=== PATIENT | female | born 1965 | race Caucasian/White ===

== ENCOUNTER 2021-09-12 09:52 | Emergency (ER) | payer OTHER | END 2021-09-12 12:06 | disposition home or self-care (01) | LOC: ER1 09:52 | DX: S93.402A Sprain of unspecified ligament of left ankle, initial encounter (principal); S93.602A Unspecified sprain of left foot, initial encounter; E11.9 Type 2 diabetes mellitus without complications; I10 Essential (primary) hypertension; E78.5 Hyperlipidemia, unspecified; Z79.84 Long term (current) use of oral hypoglycemic drugs; X50.9XXA Other and unspecified overexertion or strenuous movements or postures, initial encounter | CPT/HCPCS: 73610; 73630; 99283 ==

== ENCOUNTER 2021-10-17 21:03 | Emergency (ER) | payer OTHER ==
[2021-10-18 00:09] LABS: HEMOGLOBIN 12.7 gm/dl (12.3-15.3); RED BLOOD COUNT 4.21 M/UL (4.00-5.10); WHITE BLOOD COUNT 6.4 K/UL (4.5-11.0)
[2021-10-18 00:28] LABS: BUN/CREATININE RATIO 23 (0-10)
[2021-10-18] MEDS ORDERED: HYDROCODON-ACE1 EAC4 PO (01:27)
== END 2021-10-18 01:51 | disposition home or self-care (01) ==
LOC: ER1 21:03
PROVIDERS: Student in an Organized Health Care Education/Training Program
DX: S32.511A Fracture of superior rim of right pubis, initial encounter for closed fracture (principal); I10 Essential (primary) hypertension; E11.9 Type 2 diabetes mellitus without complications; J44.9 Chronic obstructive pulmonary disease, unspecified; E78.5 Hyperlipidemia, unspecified; W01.0XXA Fall on same level from slipping, tripping and stumbling without subsequent striking against object, initial encounter; Y92.009 Unspecified place in unspecified non-institutional (private) residence as the place of occurrence of the external cause
CPT/HCPCS: 71045; 73502; 73700; 80053; 85025; 85610; 86850; 86900; 86901; 99284